=== PATIENT | female | born 1935 | race Caucasian/White ===

== ENCOUNTER → 2018-02-08 | Outpatient (CLI) | payer MEDICARE ==
[~2018-02-08] MED LIST: CARB1TAB22 PO; CARB1TAB48 PO; GABA300C10 PO; HYDR-3241 PO; MULT-516 PO; PRAM0.125 PO; RED600TA PO
== END | disposition home or self-care (01) ==
LOC: STAR 10:04
PROVIDERS: ATTEND Internal Medicine
DX: Z01.818 Encounter for other preprocedural examination (principal); K86.2 Cyst of pancreas
CPT/HCPCS: 93005

== ENCOUNTER 2018-02-12 08:07 | Day surgery (SDC) | payer MEDICARE ==
[~2018-02-12] VITALS: Ht 172.7 cm; Wt 61.1 kg
[2018-02-12] MEDS ORDERED: LACTATED RINGERS 1,000 ML IV SCH (08:31)
[2018-02-12 08:59] VITALS: BP 122/74
[2018-02-12] MEDS ORDERED: PROPOFOL 10 MG/ML, 20ML ONE (09:27)
[2018-02-12] MEDS ORDERED: MIDAZOLAM 1 MG/ML, 2ML ONE (09:27)
[2018-02-12] MEDS ORDERED: ALBUTEROL SULFATE 2.5 MG/3 ML NPPB PRN (10:00)
[2018-02-12] MEDS ORDERED: hydrALAzine 20 MG/ML, 1ML IV PRN (10:00)
[2018-02-12] MEDS ORDERED: FENTANYL PF 100 MCG/2ML IV PRN (10:00)
[2018-02-12] MEDS ORDERED: METOPROLOL 1 MG/ML, 5ML IV PRN (10:00)
[2018-02-12] MEDS ORDERED: MEPERIDINE/PF 25MG/0.5ML IVPush PRN (10:00)
[2018-02-12] MEDS ORDERED: LORazepam 2 MG/ML, 1ML IVPush PRN (10:00)
[2018-02-12] MEDS ORDERED: MIDAZOLAM 1 MG/ML, 2ML IV PRN (10:00)
[2018-02-12] MEDS ORDERED: EPHEDRINE 50 MG/ML, 1ML IVPush PRN (10:00)
[2018-02-12] MEDS ORDERED: PROCHLORPERAZINE 5 MG/ML, 2ML IV PRN (10:00)
[2018-02-12] MEDS ORDERED: LABETALOL 5MG/ML, 20ML IV PRN (10:00)
[2018-02-12] MEDS ORDERED: ACETAMINOPHEN 325 MG TABLET PO PRN (10:00)
[2018-02-12] MEDS ORDERED: CEFAZOLIN 1,000 MG ONE (10:13)
[2018-02-12] MEDS ORDERED: ONDANSETRON 2MG/ML, 2ML ONE (10:17)
== END 2018-02-12 11:56 | disposition home or self-care (01) ==
LOC: OUT 08:07
PROVIDERS: ATTEND Internal Medicine
DX: K86.2 Cyst of pancreas (principal); I10 Essential (primary) hypertension; Z88.1 Allergy status to other antibiotic agents
CPT/HCPCS: 43238; 82150; 82378; J0690; J2250; J2405; J2704; J7120